=== PATIENT | female | born 1965 | race Caucasian/White ===

== ENCOUNTER 2016-03-05 08:37 | Emergency (ER) ==
[2016-03-05] MEDS ORDERED: MORPHINE IV ONE (09:30)
[2016-03-05] MEDS ORDERED: ASPIRIN PO STA (09:30)
[2016-03-05] MEDS ORDERED: ZOFRAN IV ONE (09:30)
[2016-03-05] MEDS ORDERED: NS 1,000 ML IV ONE (09:30)
--- NOTE | 2016-03-05 09:33 | PROVIDER DOCUMENTATION ---
HPI-Musculoskeletal Pain/Inj - GENERAL Chief Complaint: Back Pain Stated Complaint: BACK PAIN Time Seen by Provider: 03/05/16 09:02 Source: patient - HX OF PRESENT ILLNESS-MUSKULOSKELTAL Nature of Presenting Problem: Pt is a 50 yof who came to the ED with a cc of back pain. Pt reports she has had back pain for two days now. Pt reports that the pain is in the middle of her back and radiates to her left flank/superpubic area. Pt reports she is on blood thinner. Quality of Pain: reports: sharp Severity in ED: mild Onset/Duration: 2 days ago Timing: still present Modifying Factors: improves with: massage, movement Any recent injury?: No Similar Symptoms Previously?: No Recently seen or treated by another doctor?: No - FALL INJURY Location of Pain/Injury: reports: none Pain Radiation: reports: abdomen - BACK & NECK PAIN/INJURY Back/Neck Pain Location: reports: T-spine - TRUNK INJURY Location of Injury(s)/Pain: reports: abdomen Context / Method of Injury: reports: none Associated Symptoms: reports: back/neck pain Review of Systems - Adult - REVIEW OF SYSTEMS - ADULT Constitutional: denies: chills, fever Eyes: denies: blurred vision, double vision Ears, Nose, Mouth & Throat: reports: no symptoms reported Cardiovascular: reports: no symptoms reported Respiratory: denies: pleurisy, wheezing Gastrointestinal: denies: diarrhea, nausea, vomiting Genitourinary: reports: no symptoms reported Musculoskeletal: reports: bone pain, back pain. denies: joint pain, joint swelling, muscle aches Integumentary: reports: no symptoms reported Neurological: reports: no symptoms reported Psychiatric: reports: no symptoms reported Endocrine: reports: no symptoms reported Hematologic/Lymphatic: reports: no symptoms reported Allergic/Immunologic: reports: no symptoms reported All Other Systems: Reviewed and Negative Past History - Adult - PAST MEDICAL HISTORY-ADULT Review of Records: reports: Old Records Reviewed, Nursing Assessment Review Major Childhood Illnesses: reports: denies history Cardiovascular: reports: HTN Respiratory: reports: asthma, other (PE) Gastrointestinal: reports: GERD, other (esophageal strictures and reflux, hiatal hernia) Obstetrical/Gynecological: reports: denies history Genitourinary: reports: denies history Musculoskeletal: reports: denies history Neurological: reports: denies history Endocrine/Immune: reports: denies history Other Conditions: reports: denies history - PRIOR SURGERIES/PROCEDURES Surgical/Procedure History: reports: appendectomy, cholecystectomy, hysterectomy , orthopedic (extremity) - PRIOR HOSPITALIZATIONS Prior Hospitalizations: reports: for other non-related - IMMUNIZATION STATUS Childhood Immunizations: See Nurse Assessment Flu Vaccine: See Nurse Assessment - FAMILY HISTORY Family History: reviewed, not pertinent Physical Exam-Injury Related - Physical Exam-Injury Related General Appearance: appears well, alert, no apparent distress Eyes: PERRL/EOMI, pink conjunctivae Head, Ears, Nose, Mouth & Throat: normocephalic/atraumatic, normal ENT inspection, TMs normal, pharynx normal Neck: non-tender, full range of motion, supple, normal inspection Respiratory: chest non-tender, lungs clear, normal breath sounds, no pleuratic chest pain, no respiratory distress, no accessory muscle use Cardiovascular: normal peripheral pulses, regular rate, rhythm, no edema, no gallop, no JVD, no murmur Abdominal Exam: normal bowel sounds, soft, no organomegaly, no pulsatile mass, tenderness Lymphatic: no adenopathy Back Exam: no CVA tenderness, vertebral tenderness Extremity: normal range of motion, non-tender, normal gait, normal inspection, no pedal edema, no calf tenderness, normal capillary refill, pelvis stable Integumentary: normal color, warm/dry 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, no motor/sensory deficits Psych/Mental Status: AL, normal mood/affect, normal thought content, normal thought process, oriented x 3 Progress - PLAN OF CARE/RESULTS Progress/Plan/Lab Results: Vital Signs - 24 hr 03/05/16 08:41 Temperature 97.5 F L Pulse Rate 76 Respiratory 18 Rate Blood Pressure 124/73 O2 Sat by Pulse 100 Oximetry - EKG 1 Time of EKG reading by physician:: 09:26 EKG Read and Signed by:: Medhat Menjivar EKG Interpretation (*Must complete 3 of following elements*): Normal Rate: 64 Rhythm: NSR - CT/MRI 1 CT Study: Abdomen (No PE, NAP involving chest, abd, or pelvis) Departure - Departure Time of Disposition Order: 11:46 DIAGNOSIS: Atypical chest pain Back pain Qualifiers: Back pain location: thoracic back pain Chronicity: unspecified Back pain laterality: midline Qualified Code(s): M54.6 - Pain in thoracic spine Disposition: HOME 01 Certified Medical Emergency: Emergent Condition: Good Attestation - Scribe Verification/Attestation Scribe:: Jeana Brandt Acting as Scribe for:: Medhat Menjivar Scribe documention review:: This chart was documented by a scribe and accurately reflects the service the provider performed and the decisions made by the provider.
[2016-03-05 10:02] LABS: MANUAL DIFF NEEDED? NO
[2016-03-05 10:07] LABS: BASO% 0.4 % (0.0-0.8); EOS% 1.3 % (0.0-10.0); HEMATOCRIT 42.7 % (37.0-47.0); HEMOGLOBIN 14.4 g/dL (12.0-16.0); IMM GRAN# 0.02 X1000 (0.0-0.04); IMM GRAN% 0.3 % (0.0-0.5); LYMPH# 2.68 X1000 (1.2-3.4); MCH 29.8 PG (27-31); MCHC 33.7 g/dL (33-37); MCV 88.4 FL (81-99); MONO# 0.48 X1000 (0.11-0.59); MONO% 6.1 % (1.7-9.3); MPV 9.8 FL (7.4-10.4); NEUT% 57.9 % (42.2-75.2); PLT 275 X1000 (130-400); RBC 4.83 XMIL (4.2-5.4)
[2016-03-05 10:27] LABS: AGAP 13; ALBUMIN 4.3 g/dL (3.5-5.0); ALKALINE PHOSPHATASE 77 U/L (32-104); BUN 11 mg/dL (8-22); CALCIUM 9.4 mg/dL (8.8-10.2); CHLORIDE 105 mmol/L (98-107); CK PROFILE 75 U/L (24-173); COSMO 282; GOT 19 U/L (10-30); GPT 26 U/L (10-36); LIPASE 30 U/L (13-60); POTASSIUM 3.5 mmol/L (3.5-5.1); SODIUM 142 mmol/L (136-145); TCO2 24 mmol/L (25-35); TOTAL BILIRUBIN 1.06 mg/dL (0.20-1.00); TOTAL PROTEIN 7.6 g/dL (6.3-8.3)
[2016-03-05 10:28] LABS: INR 1.39; PROTIME 14.8 Seconds (9.2-11.7); PTT 26.8 Seconds (22.0-36.0)
[2016-03-05 10:41] LABS: URINE CULTURE NEEDED? NO; URINE MICRO REVIEW NEEDED? NO; URINE SOURCE CLEAN CATCH
[2016-03-05 10:45] LABS: BILIRUBIN URINE NEGATIVE (NEGATIVE); BLOOD URINE TRACE (NEGATIVE); COLOR YELLOW; GLUCOSE URINE NEGATIVE (NEGATIVE); LEUKOCYTES URINE NEGATIVE (NEGATIVE); NITRITE URINE NEGATIVE (NEGATIVE); PH URINE 5.5; PROTEIN URINE NEGATIVE (NEGATIVE); SP GRAVITY URINE 1.019; TURBIDITY URINE CLEAR (CLEAR); UR EPITHELIAL CELLS <10 /HPF (<10); URINE BACTERIA 1+ /HPF; URINE RBC <10 /HPF (<10); URINE WBC <10 /HPF (<10); UROBILINOGEN URINE NORMAL (NORMAL)
[2016-03-05 10:56] LABS: UR AMPHETAMINES QUAL NONE DETECTED (NONE DETECT); UR BARBITUATES QUAL NONE DETECTED (NONE DETECT); UR BENZODIAZEPIN QUAL NONE DETECTED (NONE DETECT); UR CANNABINOIDS QUAL NONE DETECTED (NONE DETECT); UR COCAINE QUAL NONE DETECTED (NONE DETECT); UR METHADONE QUAL NONE DETECTED (NONE DETECT); UR OPIATES QUAL NONE DETECTED (NONE DETECT); UR OXYCODONE QUAL NONE DETECTED (NONE DETECT); UR PCP QUAL NONE DETECTED (NONE DETECT)
--- NOTE | 2016-03-05 11:50 | Diag Imaging Result Document ---
PROCEDURE NAME: ABD/PELVIS/PULM ARTERIES - 03/05/[address] ABDOMEN AND PELVIS WITH CONTRAST: COMPARISON: CTA chest dated 11/17/[address] abdomen and pelvis dated 09/08/2013. FINDINGS: CTA CHEST: There is no evidence of pulmonary embolism. There is no evidence of aortic dissection or aneurysm. There is no evidence of significant mediastinal or hilar lymphadenopathy. There is no cardiomegaly. The lungs are clear with no airspace consolidations. There are no pleural fluid collections, and there is no pneumothorax. The bony structures of the thorax are grossly intact. ABDOMEN/PELVIS: There has been a previous cholecystectomy. There is no evidence of significant biliary dilatation. There is a very small hiatal hernia that is stable. There is a small parapelvic renal cyst on the right that is stable. There appears to have been a prior hysterectomy. No focal inflammatory change, free abdominal gas, or free fluid is identified, otherwise. The remainder of the solid viscera of the abdomen and pelvis and the remainder of the GI tract is essentially unremarkable. The bony structures of the abdomen and pelvis are grossly intact. There is trace distal aortic atherosclerotic calcification. There is no evidence of aortic aneurysm. IMPRESSION: 1. No evidence of pulmonary embolism or other acute chest pathology. 2. Tiny stable hiatal hernia and other incidental/nonacute findings detailed above but no evidence of acute pathology involving the abdomen or pelvis.
--- NOTE | 2016-03-05 12:01 | Diag Imaging Result Document ---
PROCEDURE NAME: CHEST-PORTABLE - 03/05/2016 SINGLE FRONTAL RADIOGRAPH OF THE CHEST: COMPARISON: 10/02/2014. FINDINGS: The lungs are grossly clear. There is no discrete pleural fluid collection or evidence of pneumothorax. The cardiomediastinal silhouette and upper airway are grossly unremarkable. IMPRESSION: No evidence of acute chest pathology.
[2016-03-05 12:02] VITALS: BP 99/66
--- NOTE | 2016-03-07 06:18 | EKG Report ---
Test Performed on : 03/05/2016 09:26:38 AM Test Reason : Chest Pain Blood Pressure : / mmHG Vent. Rate : 064 BPM Atrial Rate : 064 BPM P-R Int : 130 ms QRS Dur : 084 ms QT Int : 402 ms P-R-T Axes : 046 006 026 degrees QTc Int : 414 ms Normal sinus rhythm. with sinus arrhythmia. Normal ECG When compared with ECG of 16-FEB-2015 00:02, No significant change was found Unconfirmed Result
== END 2016-03-05 12:02 | disposition home or self-care (01) ==
LOC: ED 08:37
DX: R07.89 Other chest pain (principal); M54.6 Pain in thoracic spine; R10.9 Unspecified abdominal pain; K44.9 Diaphragmatic hernia without obstruction or gangrene; I10 Essential (primary) hypertension; K21.9 Gastro-esophageal reflux disease without esophagitis; Z79.01 Long term (current) use of anticoagulants; Z79.899 Other long term (current) drug therapy; Z86.711 Personal history of pulmonary embolism
CPT/HCPCS: 71010; 71275; 74177; 80053; 81001; 82550; 83690; 83735; 83880; 84484; 85025; 85610; 85730; 93005; 96374; G0480; J2270; J2405; J7030; Q9967